=== PATIENT | female | born 1995 | race African-American/Black ===

== ENCOUNTER 2024-12-29 09:45 | Inpatient (IN) | payer MEDICAID, SELFPAY ==
--- NOTE | 2024-12-15 11:51 | HP.PCM_ITS ---
History and Physical Date of Admission: 12/31/24 HPI: The patient is a 29 year old female presenting for pre-operative visit. She is scheduled for , for previous c/s on 12/29/24. Procedure discussed along with risks, benefits and complications. Other alternatives discussed for management. Consent form signed? Yes. ? ? PAST MEDICAL HISTORY PAST MEDICAL HISTORYDiagnosisDate?NEGATIVE MEDICAL HISTORY? ? ? PAST SURGICAL HISTORY PAST SURGICAL HISTORYProcedureLateralityDate? SECTION HX? CURRENT MEDICATIONS Current Outpatient MedicationsMedicationSigDispenseRefill?ferrous sulfate (IRON PO)Take by mouth.???aspirin, enteric coated (ECOTRIN LOW STRENGTH) 81 mg EC tabletTake 1 tablet by mouth once daily.90 tablet3?PNV no.95/ferrous fum/folic ac ( ORAL)Take by mouth.???No current facility-administered medications for this visit. ? ? ALLERGIES: Patient has no known allergies. ? PERSONAL HISTORY: SOCIAL HISTORY Social History?Tobacco Use?Smoking status:Never?Smokeless tobacco:NeverVaping Use?Vaping status:Never UsedSubstance Use Topics?Alcohol use:Not Currently?Drug use:Never ? FAMILY HISTORY: FAMILY HISTORY FAMILY HISTORY ProblemRelationAge of Onset?No Known ProblemsMother??HypertensionFather??No Known ProblemsBrother??No Known ProblemsBrother??No Known ProblemsBrother??No Known ProblemsBrother??No Known ProblemsMaternal Grandmother??No Known ProblemsMaternal Grandfather??No Known ProblemsPaternal Grandmother??CancerPaternal Grandfather? ? ? REVIEW OF SYMPTOMS: GENERAL: denies fevers or chills ENDOCRINOLOGY: has not been on steroids Cardiology : denies palpitations or chest pain Respiratory: denies SOB or cough Hematology: denies history of prolonged bleeding or easy bruising or VTE Allergy: Denies history of personal or family history of allergy to anesthesia ? PHYSICAL EXAMINATION: ? VITALS: Blood pressure 134/76, pulse 100, height 161.3 cm (5' 3.5), weight 123.4 kg (272 lb), last menstrual period 03/29/2024, SpO2 98%. ? GENERAL: The patient is well nourished, well hydrated in no acute distress. , The patient is oriented to time, place, and person. NECK: Supple. No lynphadenopathy, normal thyroid, no thyromegaly. LUNGS: Clear to auscultation bilaterally. no wheezes, rhonchi or rales HEART: Regular rate and rhythm, Normal heart sounds, and No murmurs or gallops abd- soft, nontender, gravid ? IMPRESSION: Estimated Date of Delivery: 01/03/25 ? PLAN: The risks/benefits/alternatives and personal involved for the planned c- section were reviewed with the patient. Her questions were answered to her satisfaction and she desires to proceed. Consent was signed. I reviewed with her postop instructions and expectations. H/o postop hemorrhage and take back with first delivery ? Baby boy Rob support person sada Caceres ? I have reviewed and updated past medical and surgical history, medications and allergies Assessment & Plan Assessment/Plan (1) 39 weeks gestation of : (2) Supervision of high risk in third trimester: (3) Previous delivery affecting : (4) Maternal obesity syndrome in third trimester: (5) BMI 45.0-49.9, adult: (6) History of hemorrhage, currently :
[2024-12-29] VITALS (24 sets, daily range): BP systolic 102–140; BP diastolic 47–85; PULSE 59–113; RESP 16–28; TEMP 35.7–36.5; O2SAT 98–100; BMI 48.4
[2024-12-29] MEDS: Lactated Ringers 1,000 ML 999 ML IV (10:05)
[2024-12-29 10:24] LABS: Hematocrit 33.5 % (37-47); Hemoglobin 10.8 g/dL (12.0-15.0); Immature Granulocytes Count 0.060 X10^3/uL (0.0-0.0); Mean Corp Hgb Conc 32.2 g/dL (32-36); Mean Corpuscular Volume 77.4 fL (81-99); Mean Platelet Vol. 11.3 fl (6.2-12.0); NRBC Flagged by Analyzer 0 % (0-5); Platelet Count 205 K/mm3 (150-450); RBC Distribution Width CV 16.7 % (11.6-14.6); RBC Distribution Width SD 46.3 fl (35.1-43.9); Red Blood Count 4.33 M/mm3 (4.2-5.4); White Blood Count 7.9 K/mm3 (4.4-11.0)
[2024-12-29] MEDS: 0.9% Saline Lock 10 ML Syringe IV ×2 (10:38→21:18)
[2024-12-29 11:09] LABS: Syphilis Antibodies Nonreactive (Nonreactive)
[2024-12-29] MEDS: Lactated Ringers 1,000 ML 150 ML IV (11:15)
[2024-12-29] MEDS: morphine PF 10 MG/10 ML Ampul INTRATH (12:24)
[2024-12-29] MEDS: Cefazolin 1 GM/5 ML Vial 2 GM IV (12:30)
[2024-12-29] MEDS: TRANEXAMIC ACID 1,000 MG/10 ML ML 1000 MG IV (12:32)
[2024-12-29] MEDS: TRANEXAMIC ACID 1,000 MG in 0.9% Normal Saline (100mL Bag) 100 ML 440 MG IV (12:32)
[2024-12-29] MEDS: Azithromycin 500 MG Vial (SNAP) IV (12:48)
[2024-12-29] MEDS: Azithromycin 500 MG in 0.9% Normal Saline (250mL Bag) 250 ML 250 MG IV (12:48)
--- NOTE | 2024-12-29 13:37 | OP.PCM_ITS ---
Assessment & Plan (1) BMI 45.0-49.9, adult: (2) Maternal obesity syndrome in third trimester: (3) Previous delivery affecting : (4) Supervision of high risk in third trimester: (5) 39 weeks gestation of : (6) delivery delivered: (7) Single live : Maternal Data Information Final JANINA: 01/03/25 Gestational age: 39 2/7 Operative Report (OB) Details Procedure Type: low transverse Date of Procedure: 12/29/24 Procedure Start Time: 12:39 Procedure Stop Time: 13:37 Time of Delivery: 12:44 Pre-Operative Diagnosis: Repeat Elective Post-Operative Diagnosis: Same as Pre-operative diagnosis Classification: Scheduled Type of Anesthesia: Spinal Special Medications: duramorph Antibiotic Given: Ancef 3 grams IV x1 and Zithromax 500 mg/5 mL X1 Drain: Vega to straight drain Estimated Blood Loss: 900 Fluids Replaced: 300 Findings Description of surgery: The patient was taken to the operating room. She was prepped and draped in the dorsal supine position. A low horizontal skin incision was made approximately 2 cm above the symphysis pubis and carried through to underlying layer fascia with the scalpel. This was made through her prior existing scar. The fascia was incised incised in the midline and extended laterally with the Chow scissors. The fascia was dissected off the rectus muscles with blunt and sharp dissection. The rectus muscles were in the midline and the peritoneum was entered [bluntly]. The peritoneal incision was stretched and the bladder blade was placed. The uterine incision was made in a low transverse fashion with the scalpel and extended superiorly and inferiorly with blunt dissection. [The amniotic membranes were ruptured bluntly and clear amniotic fluid returned]. The infant' s head was brought to the incision in the flexed position and delivered without difficulty. The remainder of the was delivered with gentle traction and fundal pressure in the standard fashion. The mouth and nares were bulb suctioned. The cord was clamped and cut as the infant was stimulated. [Cord clamping was delayed]. The was handed off to the waiting nursing staff. The placenta was delivered with fundal massage and gentle traction in the standard fashion. The uterus was not able to be exteriorized due to the large fundal right-sided fibroid. The Lalo O retractor was placed and visualization was noted. There was a slight cervical extension to the incision on the left side. [The cervix was dilated with a ring forcep]. The uterine incision was closed with #1 Vicryl in a running locked fashion. [A second layer of the same suture was used in an imbricating fashion.] Several 0 Vicryl felt [id number] sutures were needed to control bleeding and some bleeding sinuses along the incision. The incision was examined and was found to be hemostatic. The ovaries and tubes were examined bilaterally and were normal in appearance.. The rectus muscles were examined and any bleeding was Bovie cauterized. Hemablast was placed over the uterine incision prophylactically the rectus muscles were unable to be reapproximated or there would have been a significant amount tension on them. The parietal peritoneum was closed with 0 Vicryl suture in a running standard fashion. Hemablast was placed over the rectus muscles. The rectus fascia was examined and any bleeding was Bovie cauterized and the rectus fascia was closed with looped #1 PDS suture in a running standard fashion. The subcutaneous tissue was examining and any bleeding was Bovie cauterized. Hemablast was placed in the subcutaneous tissue. [The subcutaneous tissue was reapproximated with 3-0 Vicryl suture in 2 layers.] The skin was closed in a subcuticular fashion by the PRINT SUPPORT SPECIALIST with me present in the labor and delivery suite. I performed the remainder of the procedure with assistance. All sponge, lap, and needle counts were correct. The patient was taken to her room for recovery in a stable condition. Surgical findings: Vigorous male infant in cephalic presentation, clear amniotic fluid, normal ovaries, normal tubes. Right sided fundal fibroid approximately 10 cm Presentation: Vertex Amniotic Membrane Rupture Type: Artificial Amniotic Fluid Description: Clear Placental Delivery Description: Expressed Placenta Disposition: [facility] Specimen collected: No Cord Vessel Description: 3 Vessels Cord Entanglement: Around neck x 1, loose Nuchal Cord Compression: Without compression A gender: Male (Rob) (1 minute): 8 (5 minute): 9 Delayed Cord Clamping: Yes Tailings Worker maori liaison adviser: Yes Capital Campaign Fundraiser: Byron Galindo Tasks completed by certified surgical tech/first assistant: Closing, Hemostasis: Tie, Hemostasis: Electrocautery and Retracting Additional railway yard assistant?: Yes Additional Patient Relations Director #2: Derik MS4 Tasks completed by railway yard assistant #2: Closing, Hemostasis: Tie and Retracting Additional railway yard assistant?: No Complications Complications: No Admit VTE Documentation VTE Present on Admission: Yes VTE Mechan Device Prophylaxis: SCD's VTE Pharm Prophylaxis Ordered: Yes
[2024-12-29] MEDS: Oxytocin 15 Units/NS 250ml 15 UNITS/250 ML IV.SOLN 83 UNITS IV (14:03)
[2024-12-29] MEDS: Ketorolac 30 MG/ML Syringe IV ×2 (15:10→21:18)
[2024-12-29] MEDS: Lactated Ringers 1,000 ML 100 ML IV (17:21)
[2024-12-30] VITALS (10 sets, daily range): BP systolic 106–134; BP diastolic 54–78; PULSE 70–82; RESP 16–18; TEMP 36.1–36.8; O2SAT 98–100
[2024-12-30] MEDS: 0.9% Saline Lock 10 ML Syringe IV ×3 (02:33→08:55)
[2024-12-30] MEDS: Ketorolac 30 MG/ML Syringe IV ×2 (03:15→08:55)
[2024-12-30 05:38] LABS: Hematocrit 32.7 % (37-47); Hemoglobin 10.4 g/dL (12.0-15.0); Mean Corp Hgb Conc 31.8 g/dL (32-36); Mean Corpuscular Volume 78.6 fL (81-99); Mean Platelet Vol. 11.4 fl (6.2-12.0); Platelet Count 182 K/mm3 (150-450); RBC Distribution Width CV 16.7 % (11.6-14.6); RBC Distribution Width SD 46.8 fl (35.1-43.9); Red Blood Count 4.16 M/mm3 (4.2-5.4); White Blood Count 10.5 K/mm3 (4.4-11.0)
--- NOTE | 2024-12-30 09:37 | DS.PCM_ITS ---
Providers Date of Admission: 12/29/24 Primary Care Physician: No Primary Care Phys Reason For Visit: REPEAT Diagnosis Discharge Diagnosis (1) BMI 45.0-49.9, adult: Status: Acute Code(s): Z68.42 - Body mass index [BMI] 45.0-49.9, adult (2) Maternal obesity syndrome in third trimester: Status: Acute Code(s): O99.213 - Obesity complicating , third trimester (3) Previous delivery affecting : Status: Acute Code(s): O34.219 - Maternal care for unspecified type scar from previous delivery (4) Supervision of high risk in third trimester: Status: Acute Code(s): O09.93 - Supervision of high risk , unspecified, third trimester (5) 39 weeks gestation of : Status: Acute Code(s): Z3A.39 - 39 weeks gestation of (6) delivery delivered: Status: Acute Code(s): O82 - Encounter for delivery without indication (7) Single live : Status: Acute Code(s): Z37.0 - Single live Medications at Discharge Home Medications aspirin 81 mg tablet 81 mg PO DAILY 12/29/24 docosahexaenoic acid 200 mg capsule ( DHA) mg PO 12/29/24 ferrous sulfate 325 mg (65 mg iron) tablet (Feosol) 325 mg PO DAILY anemia 12/29/24 Hospital Course Operations - (Repeat low-transverse section on 12/29/2024) Procedures None Summary of Care Provided Minutes Spent on Discharge: 14 Hospital Course: Patient is a 29-year-old female who presented for repeat section on 12/29/2024 which was performed without complication. On day #1 her hemoglobin stable. She and the are doing well. She desired discharge home with routine instructions and follow-up in the office in 1 to 2 weeks or as needed. Physical Exam Narrative Pain well-controlled. No nausea or vomiting. Tolerating regular diet. No other complaints today. Const alert General Appearance: cooperative GI GI Narrative: soft, moderate distention, fundus firm, appropriately tender. Abdominal bandage clean dry and intact Weight / BMI Weight Weight: 124 kg Body Mass Index (BMI) 48.4 ABG / Lab / Microbiology Data 12/30/24 05:24 Laboratory: Laboratory Results - last 24 hr 12/29/24 10:05: WBC 7.9, RBC 4.33, Hgb 10.8 L, Hct 33.5 L, MCV 77.4 L, MCH 24.9 L, MCHC 32.2, RDW Std Deviation 46.3 H, RDW Coeff of Cira 16.7 H, Plt Count 205, MPV 11.3, Immature Gran % (Auto) 0.800, Neut % (Auto) 69.2, Lymph % (Auto) 21.7, [place] % (Auto) 7.5, Eos % (Auto) 0.5, Baso % (Auto) 0.3, Absolute Neuts (auto) 5.5, Absolute Lymphs (auto) 1.71, Nucleated RBC % 0, Syphilis Total Ab Nonreactive, Blood Type O POSITIVE, Antibody Screen NEGATIVE 12/30/24 05:24: WBC 10.5, RBC 4.16 L, Hgb 10.4 L, Hct 32.7 L, MCV 78.6 L, MCH 25.0 L, MCHC 31.8 L, RDW Std Deviation 46.8 H, RDW Coeff of Cira 16.7 H, Plt Count 182, MPV 11.4 D/C Instructions May resume sexual activity in: 4-6 weeks Lifting Restrictions: 20 pounds Additional Activity Instructions: Nothing in the vagina for 4-6 weeks. You may return to work/school in 6 weeks. Call your doctor if your incision/area has: Continuous Slow Oozing, Sudden Increased Bleeding, Increased Pain/ Swelling, Increased Redness and Foul Smelling Discharge Call your doctor if you observe: Fever of 101 or Higher and Using more than 1 pad per hour (for 2 hours) Suture Line Care: Avoid Pulling/Pushing and Avoid Pinching/Bending Cleanse incision/area with: Keep Dressing Clean & Dry DC O2, CPAP, BIPAP Needs Home O2 Discharge instructions: No Please Follow Up With: Cassandra Chiang MD When: Call to make an appointment for an incision check in 1-2 [phone]. You will need a post check in 6 weeks. Meaningful Use Info Meaningful Use Meaningful Use Diagnoses (Choose all that apply): None applicable Discharge Plan Admission Admit Date/Time: 12/29/24 09:45 Attending Provider: Cassandra Chiang Primary Care Provider: Care Physician,No Primary Discharge Orders/Prescriptions Prescriptions: No Action ferrous sulfate [Feosol] 325 mg (65 mg iron) tablet 325 mg PO DAILY DHA 200 mg capsule PO aspirin 81 mg tablet 81 mg PO DAILY Referrals / Follow Up: Care Physician,No Primary [Primary Care Provider] -
[2024-12-30] MEDS: Senna/Docusate Sodium 1 Tablet PO (11:20)
== END 2024-12-30 17:45 | disposition home or self-care (01) | DRG 540 ==
PROVIDERS: Admitting Provider Obstetrics & Gynecology; Referring Provider Obstetrics & Gynecology; Visit Provider Obstetrics & Gynecology
PROC: 10D00Z1 Extraction of Products of Conception, Low, Open Approach (ICD-10-PCS; CPT 59514; principal; 2024-12-29 11:45)
DX: O34.211 Maternal care for low transverse scar from previous cesarean delivery (principal); E66.9 Obesity, unspecified; D25.9 Leiomyoma of uterus, unspecified; O69.81X0 Labor and delivery complicated by cord around neck, without compression, not applicable or unspecified; O99.214 Obesity complicating childbirth; O34.13 Maternal care for benign tumor of corpus uteri, third trimester; Z3A.39 39 weeks gestation of pregnancy; Z37.0 Single live birth
CPT/HCPCS: 85025; 85027; 86780; 86850; 86900; 86901; 99221; A4216; G0378; J2405